=== PATIENT | male | born 1985 | race Hispanic/Latino ===

== ENCOUNTER 2016-08-31 21:49 | Emergency (ER) | payer OTHER ==
[~2016-08-31] VITALS: Ht 175.3 cm; Wt 75.0 kg
[2016-08-31 22:55] VITALS: BP 124/77; PULSE 76; RESP 20; O2SAT 98
--- NOTE | 2016-08-31 23:33 | ED.REPORT ---
HPI-Back Pain Under 40 Date of Service Aug 31, 2016 ED Provider: Nate Underwood MD Patient is a 31 year old male with a hx of a previous back surgery who presents to the ED complaining of back pain from his tailbone radiating to his upper back s/p a fall to the ground. He was working when he slipped and fell backwards into a pile of lumber. He denies numbness, tingling, incontinence, or any other symptoms. Nursing Notes Stated Complaint: LOWER BACK AND TAILBONE INJURY Chief Complaint: Back Pain or Injury Nursing Notes Reviewed: Yes Scheduled Methocarbamol (Robaxin-750) 750 Mg Tablet 1-2 TAB PO QID Scheduled PRN Naproxen (Naprosyn) 500 Mg Tablet 500 MG PO BID PRN PRN For Pain General Time Seen by MD: 23:32 Chief Complaint Back pain Hx Obtained From: Patient, Spouse Arrived By: Walk-in Sudden in Onset?: Yes Caused by: Fall Past Medical History Past Medical History Healthy Past Surgical History Reports: Back/neck surgery Smoking History Unknown if Ever Smoker Social History Other Social History: Good social support Ambulatory Status Independent Review of Systems Review of Systems Note: -tingling Musculoskeletal: Reports: Back pain Neurologic: Denies: Bladder dysfunction, Bowel dysfunction, Numbness Complete sys rev & neg: except as marked. Physical Exam Initial Vital Signs Vital Signs (First) Date Time Temp Pulse Resp B/P Pulse Ox O2 Delivery O2 Flow Rate FiO2 08/31/16 22:55 36.6 76 20 124/77 98 Room Air Initial VS: Reviewed, Vital signs normal Head / Eyes: Atraumatic, Normocephalic Neck: Supple, Non-tender, Full range of motion Respiratory: Breath sounds normal, Clear to auscultation, No respiratory distress Cardiovascular: Regular rate & rhythm, Heart sounds normal, Intact distal pulses Skin: Warm, Dry Psychiatric: Mood/affect normal, Behavior normal, Normal thought content General/Constitutional: Awake, Alert, Well developed Flank / Spine / Paraspinal: Positive: Sacral spine tender... Tender over lower sacrum and over surgical scar Neurologic: Oriented X3, Speech NL Interpretation & Diagnostics X-Ray Interpretation Xray Interpretation: No S1 fx Study Performed: Lumbar spine Interpretation / Wet Read by: Interpret - ED physician Re-Eval/Medical Decision Med Decision/Clinical Course Ground-level fall with impact on the low sacrum and coccyx. No evident fracture. Moderately tender to palpation without visible bruising or deformity. No neurologic symptoms distally. Home with ibuprofen and Robaxin. Out of work two days. Follow up PCP. Re-Evaluation/Progress : Time of Eval: 00:39 Re-Evaluation/Progress Note: Discussed plan for discharge. Patient understands and agrees with plan. All questions addressed at this time. Counseled Regarding: Diagnosis, Lab results, Need for follow-up, When/why to return to ED Discharge & Departure Impression: Primary Impression: Sacral contusion Encounter type: initial encounter Qualified Code: S30.0XXA - Contusion of lower back and pelvis, initial encounter Additional Impression: Low back pain Chronicity: acute Back pain laterality: bilateral Sciatica presence: without sciatica Qualified Code: M54.5 - Low back pain Disposition: Home All VS Reviewed: Yes Condition: Stable Additional Instructions: Ice the area frequently in the first twenty-four hours. You may switch over to heat after that. Return for any numbness, tingling, weakness, or other new symptoms of concern. Naprosyn twice daily. Robaxin up to four times daily if needed for pain. Follow-up with your doctor in the office. He may follow up at [place] if you need local coverage. Hielo en el christo con frecuencia en las primeras veinticuatro horas. Usted puede cambiar al calor despus de eso. Regrese para cualquier entumecimiento, hormigueo, debilidad, u otros nuevos sntomas de preocupacin. Naprosyn dos veces al da. Robaxin hasta cuatro veces al da si es necesario para el dolor. Melida un seguimiento con [place] mdico en la oficina. Puede seguir en May si necesita cobertura local. Referrals: Christy Ogden MD (PCP) Scribe Attestation Portions of this note were transcribed by Benigno Swanson. I, Dr. Underwood personally performed the history, physical exam and medical decision-making; I reviewed and confirmed the accuracy of the information in the transcribed note. Signed by: Benigno Swanson 09/01/2016, 0044 copies to: Christy Ogden MD, Christopher W MD Aug 31, 2016 23:33 BENIGNO SWANSON Sep 01, 2016 00:39
[2016-09-01] MEDS ORDERED: NAPR500T PO (00:40)
[2016-09-01] MEDS ORDERED: METH-313 PO (00:40)
[2016-09-01 00:52] VITALS: BP 126/76; PULSE 72; RESP 18; O2SAT 99
--- NOTE | 2016-09-01 08:35 | DRSVH ---
PROCEDURE: X-RAY LUMBAR SPINE, 2 OR 3 VIEW INDICATIONS: fall at work TECHNIQUE: 3 views of the lumbar spine were acquired. COMPARISON: [facility], , SPINE LUMB 2 OR 3VW, 08/20/2006, 12:53. FINDINGS: Bones: 5 [id number] vertebrae are present. Minimal dextroscoliosis. Posterior fixation hardwar e present at the T12, L1 and L2 levels in expected position. Grade 1 retrolisthesis L3-L4 and L4-L5 and. No vertebral body compression fractures. No suspicious bony lesions. Soft tissues: Overlying bowel gas pattern is normal. No suspicious soft tissue calcifications. IMPRESSION: 1. Posterior fixation hardware present in grade 1 retrolisthesis at the L4-L5 and L5-S1 levels. Dictated by: Monty Poole [facility] Interpreted: Didi Burgos MD on 09/01/2016 at 8:32 Transcribed by: ORAL on 09/01/2016 at 8:34 Approved by: Didi Burgos MD, PhD on 09/01/2016 at 10:34
== END 2016-09-01 00:53 | disposition home or self-care (01) ==
LOC: SED 21:49
DX: S30.0XXA Contusion of lower back and pelvis, initial encounter (principal); W01.0XXA Fall on same level from slipping, tripping and stumbling without subsequent striking against object, initial encounter; Y93.89 Activity, other specified; Y92.69 Other specified industrial and construction area as the place of occurrence of the external cause; Y99.0 Civilian activity done for income or pay
CPT/HCPCS: 72100; 96372; 99284; J1885